=== PATIENT | female | born 1985 | race Caucasian/White ===

== ENCOUNTER 2023-11-05 21:52 | Emergency (ER) | payer BC, OTHER, SELFPAY ==
--- NOTE | ~2023-11-05 | CT_ITS ---
EXAMINATION: CT abdomen pelvis wo con DATE: 11/05/2023 23:01 INDICATION: Left flank pain TECHNIQUE: Computed tomography (CT) of the abdomen and pelvis was performed without intravenous contr ast. The dose-length product (DLP) was 188.00 mGy-cm. Automated exposure control and iterative recons truction technique were employed. COMPARISON: None FINDINGS: Minimal dependent atelectasis is present in the lung bases. The heart size is normal. The l iver, spleen, pancreas, gallbladder, and adrenal glands are normal. There is a 4 mm stone of the dist al left ureter which causes mild hydroureteronephrosis. There is a 4 mm nonobstructing stone of the l eft mid kidney. There is a punctate nonobstructing stone of the right kidney. No pathologically enlar ged abdominal or pelvic lymph nodes are identified. No free intraperitoneal gas or evidence of bowel obstruction. There is a small umbilical hernia containing fat. IMPRESSION: 1. 4 mm stone of the distal left ureter causing mild hydroureteronephrosis. 2. Bilateral nonobstructing nephrolithiasis. Reviewed, dictated and finalized at location F[facility] [employer]
[2023-11-05 21:53] VITALS: BP 123/98; PULSE 80; RESP 20; TEMP 36.3; O2SAT 100
[2023-11-05] MEDS: ONDANSETRON INJ 4 MG/2 ML VIAL IV PUSH (22:11)
[2023-11-05 22:23] LABS: Basophils Percent Auto 0.4 % (0.2-1.2); Eosinophils Absolute Auto 0.3 K/mm3 (0-0.3); Eosinophils Percent Auto 4.4 % (0-4.4); Hematocrit 38.6 % (37.0-47.0); Immature Granulocyte Absolute 0.02 K/mm3 (0.00-0.031); Immature Granulocyte Percent A 0.3 % (0-0.5); Lymphocytes Absolute Auto 3.33 K/mm3 (0.9-3.2); Lymphocytes Percent Auto 48.8 % (18.3-44.2); Mean Corpuscular HGB Conc 33.7 g/dl (32-36); Mean Corpuscular Hemoglobin 31.2 pg (26-34); Mean Corpuscular Volume 92.6 fl (80-100); Mean Platelet Volume 11.7 fl (7.4-10.4); Monocytes Absolute Auto 0.8 K/mm3 (0.1-0.6); Monocytes Percent Auto 11.1 % (2.6-8.5); Neutrophils Absolute Auto 2.4 K/mm3 (1.3-6.7); Platelet Count Result 153 k/mm3 (150-375); Red Blood Count 4.17 M/mm3 (4.2-5.4); Red Cell Distribution Width 11.7 % (11.5-14.5); White Blood Count 6.8 K/mm3 (4.5-10.0)
[2023-11-05] MEDS: SODIUM CHLORIDE 0.9% IV 1,000 ML 999 ML IV CONT (22:23)
[2023-11-05] MEDS: MORPHINE SULFATE (*CRX) 4 MG/ML INJ IV PUSH (22:23)
[2023-11-05 22:35] LABS: Alanine Aminotransferase 29 U/L (6-35); Albumin Level 4.5 g/dL (3.5-5.1); Alkaline Phosphatase 64 U/L (38-126); Anion Gap 11 mmol/L (8-16); Aspartate Amino Transferase 35 U/L (14-36); Bilirubin,Total 0.5 mg/dL (0.2-1.3); Blood Urea Nitrogen 23 mg/dL (7-17); Calcium 9.4 mg/dL (8.4-10.2); Carbon Dioxide 25 mmol/L (22-30); Chloride 103 mmol/L (98-107); Estimated CRCL calculation 73 ml/min; Estimated Glomerular Filt Rate > 60; Glucose 123 mg/dL (65-110); Lipase 181 U/L (23-300); Potassium 3.4 mmol/L (3.4-5.0); Sodium 139 mmol/L (137-145)
[2023-11-05 22:43] LABS: Appearance Urine Turbid (Clear); Bacteria Urine None Seen /hpf; Bilirubin Urine Negative (Negative); Blood Urine 1+ (Negative); Color Urine Yellow (Yellow); Glucose Urine UA Negative (Negative); Ketones Urine Negative (Negative); Leukocyte Esterase Ur Negative LEU/UL (Negative); Nitrate Urine Negative (Negative); Non Pathogenic Casts 0-2; Protein Urine Negative (Negative); Specific Grav Ur 1.017 (1.001-1.035); Squamous Epithelial Cell Urine None seen /hpf (Few); Urobilinogen Urine 0.2 mg/dL (<2.0); pH Urine 8.5 (5.0-9.0)
[2023-11-05 22:51] VITALS: BP 146/95; PULSE 80; RESP 12; O2SAT 100
[2023-11-05 22:59] LABS: Add Urine Microscopic? YES
[2023-11-05] MEDS: HYDROmorphone HCL INJ (*CRX) 1 MG/ML SYR IV PUSH (23:40)
--- NOTE | 2023-11-06 00:43 | ED.GENADULT ---
HPI - General Adult General Chief complaint: Back Pain/Injury Stated complaint: Left sided flank pain Time Seen by Provider: 11/05/23 22:10 History of Present Illness HPI narrative: The patient 38-year-old female who presents to emergency department with chief complaint of left flank and left-sided abdominal pain. Patient states the pain is sharp ports significant palpable any position reports that the pain starts in the left flank area and does come over to the left side of the abdomen. The patient reports he has had nausea with this and reports 1 episode of vomiting. Related Data Allergies Allergy/AdvReac Type Severity Reaction Status Date / Time No Known Allergies Allergy Verified 11/05/23 21:56 Review of Systems Review of Systems: A 10 system review of systems was completed on the patient and is negative except for what is stated in the HPI. Nursing and ancillary documentation was reviewed. [facility] Social History Social History Smoking status: Never smoker Alcohol intake: current Exam Narrative: GENERAL: Well-appearing, well-nourished, and in mild acute pain distress. HEAD: Normocephalic, atraumatic. EYES: PERRLA and EOMI. ENT: Nares clear, no rhinorrhea or epistaxis. Mucous membranes moist. NECK: Supple. CHEST: Clear to auscultation. No respiratory distress. HEART: Regular rate and rhythm. No murmur heard. Normal peripheral pulses. ABDOMEN: Soft, nontender, nondistended, normal active bowel sounds. EXTREMITIES: Normal range of motion. No edema. SKIN: Warm, dry, no rash. NEURO: No focal deficits. Alert and oriented x3. PSYCH: Normal mood and affect. Course Vital Signs Vital signs: Vital Signs Temperature 36.3 C L 11/05/23 21:53 Pulse Rate 80 11/05/23 21:53 Respiratory Rate 20 11/05/23 21:53 Blood Pressure 123/98 H 11/05/23 21:53 Pulse Oximetry 100 11/05/23 21:53 Oxygen Delivery Room Air 11/05/23 21:53 Temperature 36.3 C L 11/05/23 21:53 Pulse Rate 80 11/05/23 22:51 Respiratory Rate 12 11/05/23 22:51 Blood Pressure 146/95 H 11/05/23 22:51 Pulse Oximetry 100 11/05/23 22:51 Oxygen Delivery Room Air 11/05/23 21:53 Medical Decision Making [facility] Narrative Medical decision making narrative: Differential diagnosis includes ureterolithiasis, diverticulitis, colitis, intra-abdominal infection, UTI, pyelonephritis Laboratory studies were obtained on the patient showed a white count of 6.8 electrolytes showed a creatinine of 0.8 urinalysis showed 11-20 red blood cells in the urine negative leukocyte esterase negative bacteria negative nitrate 6-10 white blood cells in the urine. CT scan of the abdomen pelvis showed a 4 mm distal ureteral stone with mild left hydronephrosis The patient's pain was controlled in the emergency department patient was started on Flomax and also be discharged home on pain control antiemetics and Flomax and will be referred to Urology. Vital Signs Vital Signs: Vital Signs Temperature 36.3 C L 11/05/23 21:53 Pulse Rate 80 11/05/23 21:53 Respiratory Rate 20 11/05/23 21:53 Blood Pressure 123/98 H 11/05/23 21:53 Pulse Oximetry 100 11/05/23 21:53 Oxygen Delivery Room Air 11/05/23 21:53 Temperature 36.3 C L 11/05/23 21:53 Pulse Rate 80 11/05/23 22:51 Respiratory Rate 12 11/05/23 22:51 Blood Pressure 146/95 H 11/05/23 22:51 Pulse Oximetry 100 11/05/23 22:51 Oxygen Delivery Room Air 11/05/23 21:53 Lab Data 11/05/23 22:15 11/05/23 22:15 Labs: Lab Results 11/05/23 11/05/23 Range/Units 22:15 22:28 WBC 6.8 (4.5-10.0) K/mm3 RBC 4.17 L (4.2-5.4) M/mm3 Hgb 13.0 (12.0-15.0) g/dL Hct 38.6 (37.0-47.0) % MCV 92.6 (80-100) fl MCH 31.2 (26-34) pg MCHC 33.7 (32-36) g/dl RDW 11.7 (11.5-14.5) % Plt Count 153 (150-375) k/mm3 MPV 11.7 H (7.4-10.4) fl Immatur
[2023-11-06] MEDS: ONDANSETRON INJ 4 MG/2 ML VIAL IV PUSH (00:59)
[2023-11-06] MEDS: KETOROLAC 15 MG/ML VIAL (*BKC) IV PUSH (00:59)
[2023-11-06] MEDS: HYDROcodone/acetaminophen (*CRX) 5-325 MG TABLET 1 TAB PO (00:59)
[2023-11-06] MEDS: TAMSULOSIN HCL 0.4 MG CAPSULE PO (00:59)
[2023-11-06 01:02] VITALS: BP 134/91; PULSE 92; RESP 15; O2SAT 98
== END 2023-11-06 01:00 | disposition home or self-care (01) ==
PROVIDERS: Emergency Provider Emergency Medicine; PCP Nurse Practitioner Adult Health
DX: N13.2 Hydronephrosis with renal and ureteral calculous obstruction (principal); R10.9 Unspecified abdominal pain
CPT/HCPCS: 36415; 74176; 80053; 81001; 81025; 83690; 85025; 87086; 96361; 96374; 96375; 96376; 99284; A9270; J1170; J1885; J2270; J2405; J7030

== ENCOUNTER 2023-12-14 08:26 | Emergency (ER) | payer BC, OTHER, SELFPAY ==
--- NOTE | 2023-12-14 08:32 | ED.FEMALEGU ---
HPI - Female Genitourinary General Chief complaint: Urogenital-Female Stated complaint: Left Lower Back Pain, Urinary Pain Time Seen by Provider: 12/14/23 08:31 Source: patient and old records reviewed Mode of arrival: ambulatory Limitations: no limitations History of Present Illness HPI Narrative: Jacqui is a 38-year-old female patient presenting to the clinic today with complaints of left lower back pain and burning with urination times 1-2 days. She denies any fever but has had some chills. Recently passed a kidney stone about 3 weeks ago. Patient went to the ER at that time and had a CT scan completed. Patient stated that she did witness passing the kidney stone shortly after is being seen in the ER. I reviewed the CT scan today and it shows that patient has 1 approximately 4 mm nonobstructing stone in each kidney. States that the pain is not the same as when she she was passing her kidney stone. States the pain in her flank is dull and she is having burning with urination at this time. Related Data Allergies Allergy/AdvReac Type Severity Reaction Status Date / Time No Known Allergies Allergy Verified 12/14/23 08:27 Review of Systems Review of Systems: Pertinent positives per HPI. Patient denies any fever, chills, rash, headache, visual changes, dizziness, cough, shortness of breath, chest pain, palpitations, nausea, vomiting, diarrhea, constipation, abdominal pain. PMFSH Social History Social History Smoking status: Never smoker Alcohol intake: current Comments At the time of my signature, I reviewed and agree with the nursing past medical, surgical, social, and family history. There is no relevant family history pertinent to the patient complaint. Exam Narrative: General: Well-developed, well nourished, in no apparent distress Head: Normocephalic, atraumatic Eyes: Pupils equally round and reactive to light bilaterally, EOM intact, sclera and conjunctive clear, no discharge, lids normal Ears: TMs intact and clear, ear canals clear, no drainage, grossly hearing normal. Nose: Nares patent, no discharge, no inflammation, no sinus tenderness. Mouth: Oral pharynx without lesions or masses, good dentition, MMM. Neck: Supple, trachea midline, no enlargement of anterior or posterior cervical nodes, no thyroid masses or goiter palpable. Cardio: Regular rate and rhythm, s1 and s2 normal, no murmur appreciated. Resp: Clear to auscultation bilaterally, no rhonchi, rales, wheezing or rubs Abdomen: Soft, pliable, bowel sounds present in all quadrants, non-tender to palpation, no organomegly, positive lower left CVAT tenderness. Course Course Emergency Course: Portions of this record may have been created with voice recognition software. Level of Care: Express Care Visit Vital Signs Vital signs: Vital signs reviewed MDM - Female Genitourinary MDM Narrative Medical decision making narrative: At the time of visit patient is resting comfortably on the exam table. Patient appears to be nontoxic. Labs: UA shows 1+ leukocyte and 3+ blood. Will send for culture. Plan: I will treat the patient for urinary tract infection at this time but recommend the patient go to the emergency room if symptoms worsen as she does have a kidney stone that was in the left kidney that could potentially be in the ureter obstructing and causing infection. Supportive measures were discussed with the patient and they voiced understanding discharge instructions and agrees to treatment plan. Return precautions reviewed Differential Diagnosis Differential diagnosis: Likely urinary tract infection, cystitis and other (Ureterolithiasis, nephrolithiasis, obstructing kidney stone causing infection) Discharge Plan Discharge Clinical Impression: Bilateral nephrolithiasis Urinary tract infection Qualifiers: Urinary tract infection type: acute cystitis Hematuria presence: paola
[2023-12-14 08:37] VITALS: BP 133/86; PULSE 69; RESP 16; TEMP 36.5; O2SAT 100
== END 2023-12-14 08:58 | disposition home or self-care (01) ==
PROVIDERS: Emergency Provider Nurse Practitioner Family; PCP Nurse Practitioner Adult Health
DX: N20.0 Calculus of kidney (principal); N30.01 Acute cystitis with hematuria
CPT/HCPCS: 81003; 87086; 99213; G0463